=== PATIENT | male | born 1955 | race Caucasian/White ===

== ENCOUNTER 2018-10-24 08:05 | Inpatient (IN) ==
[2018-10-24] MEDS ORDERED: DILAUDID IV ONE ×2 (09:04→10:09)
[2018-10-24] MEDS ORDERED: ZOFRAN IV ONE (09:04)
[2018-10-24] MEDS ORDERED: NS 1,000 ML IV ONE (09:04)
--- NOTE | 2018-10-24 09:07 | PROVIDER DOCUMENTATION ---
HPI-Male Problem - General Chief Complaint: Flank Pain Stated Complaint: CP,LEFT FLANK PAIN Time Seen by Provider: 10/24/18 09:01 Source: patient, old records Allergies/Adverse Reactions: Patient Allergies Allergy/AdvReac Type Severity Reaction Status Date / Time No Known Allergies Allergy Verified 10/24/18 08:49 - History of Present Illness-Male Nature of Presenting Problem: pt w/ hx of stones awakend this a.m. w/ sudden L flank pain, emesis. no fever. no hematuria reported. was well yesterday. PMHx AMI this July, on ASA/Plavix, statins, etc. NKA. Review of Systems - Adult - REVIEW OF SYSTEMS - ADULT Constitutional: reports: no symptoms reported Eyes: reports: no symptoms reported Ears, Nose, Mouth & Throat: reports: no symptoms reported Cardiovascular: reports: no symptoms reported Respiratory: reports: no symptoms reported Gastrointestinal: reports: abdominal pain Genitourinary: reports: see HPI Musculoskeletal: reports: no symptoms reported Integumentary: reports: no symptoms reported Neurological: reports: no symptoms reported Psychiatric: reports: no symptoms reported Endocrine: reports: no symptoms reported Hematologic/Lymphatic: reports: no symptoms reported Allergic/Immunologic: reports: no symptoms reported All Other Systems: Reviewed and Negative Past History - Adult - PAST MEDICAL HISTORY-ADULT Review of Records: reports: Old Records Reviewed Physical Exam-General - PHYSICAL EXAM-ADULT Initial Vital Signs Reviewed: Yes - CONSTITUTIONAL General Appearance: alert, moderate distress - EYES Eyes: PERRL/EOMI. negative: sclera injected, scleral icterus - HEAD, EARS, NOSE, MOUTH & THROAT HENMT: normal ENT inspection - NECK Neck: supple - RESPIRATORY Respiratory: lungs clear - CARDIOVASCULAR Cardiovascular: normal peripheral pulses, regular rate, rhythm - GASTROINTESTINAL (ABDOMEN) Abdominal Exam: non tender, soft - GENITOURINARY Male Genitalia: deferred Rectal Exam: deferred - LYMPHATIC Lymphatic: no adenopathy - MUSCULOSKELETAL Back Exam: normal inspection Extremity: normal gait Peripheral Pulses: radial (R): 2+, radial (L): 2+ - SKIN Integumentary: normal color, normal turgor, warm/dry - NEUROLOGIC 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, grossly normal - PSYCHIATRIC Psych/Mental Status: normal mood/affect, normal thought content Progress - PLAN OF CARE/RESULTS Progress/Plan/Lab Results: Vital Signs - 8 hr 05/16/19 08:06 10/24/18 09:39 10/24/18 10:11 Temperature 97.3 F L Pulse Rate 69 57 L 54 L Respiratory Rate 20 20 21 Blood Pressure 163/87 153/92 137/78 O2 Sat by Pulse Oximetry 99 93 L 87 L Laboratory Results - last 24 hr 10/24/18 10/24/18 10/24/18 08:47 08:47 10:25 WBC 10.91 H RBC 4.47 L Hgb 13.2 L Hct 39.7 L MCV 88.8 MCH 29.5 MCHC 33.2 RDW Std Deviation 12.6 Plt Count 168 MPV 11.1 H Immature Gran % (Auto) 0.2 Neut % (Auto) 85.6 H Lymph % (Auto) 9.2 L [place] % (Auto) 4.5 Eos % (Auto) 0.3 Baso % (Auto) 0.2 Immature Gran # (Auto) 0.02 Neut # (Auto) 9.35 H Lymph # (Auto) 1.00 L [place] # (Auto) 0.49 Eos # (Auto) 0.03 Baso # (Auto) 0.02 Segmented Neutrophils 87 H Lymphocytes 9 L Monocytes 4 Sodium 140 Potassium 3.9 Chloride 105 Carbon Dioxide 24 L Anion Gap 11 BUN 17 Creatinine 1.3 H Estimated GFR/1.73 m2 55 BUN/Creatinine Ratio 13 Glucose 129 H Calculated Osmolality 283 Calcium 8.8 Total Bilirubin 0.44 AST 22 ALT 19 Alkaline Phosphatase 77 Total Protein 7.4 Albumin 4.5 Globulin 2.9 Albumin/Globulin Ratio 1.6 Urine Source CLEAN CATCH Urine Color YELLOW Urine Turbidity CLEAR Urine pH 5.5 Ur Specific [place] 1.019 Urine Protein 30 A Ur Glucose (Stick) NEGATIVE Ur Ketones (Stick) NEGATIVE Urine Blood LARGE A Urine Nitrite NEGATIVE Urine Bilirubin NEGATIVE Urobilinogen Dipstick NORMAL Urine Leukocytes NEGATIVE Urine WBC (Auto) <10 Urine RBC (Auto) TNTC A U Epithel Cells (Auto) <10 Urine Bacteria (Auto) NEGATIVE Orders Category Date Time Status CT RENAL STONE SEARCH [CT] Stat Exams 10/24/18 09:03 Completed CBC WITH DIFF [HEME] Stat Lab 10/24/18 08:47 Completed COMPREHENSIVE METABOLIC PANEL [CHEM] Stat Lab 10/24/18 08:47 Completed URINALYSIS W/POSS RFLX CULT [URINALYSIS] Stat Lab 10/24/18 10:25 Completed 0.9% Sodium Chloride Inj [Ns] 1,000 ml Med 10/24/18 09:04 Discontinued IV 500 mls/hr Hydromorphone [Dilaudid] Med 10/24/18 09:04 Discontinued 1 mg IV NOW ONE Hydromorphone [Dilaudid] Med 10/24/18 10:09 Discontinued 1 mg IV NOW ONE Ondansetron [Zofran] Med 10/24/18 09:04 Discontinued 4 mg IV NOW ONE EKG [EKG] Stat Ther 10/24/18 08:18 Draft Result Diagrams: 10/24/18 08:47 10/24/18 08:47 - REASSESSMENT Reassessment #1 Time Reassessed: 10:30 Status: unchanged (CT confirms prox L ureteral stone (9mm); discussed options w/ pt who prefers admission, has seen Vivi before.) - CONSULTS/PCP/HOSPITALIST Notification #1 *Consult/PCP/Hospitalist*: Warner Consult Disposition: Admit Departure - Departure Date of Disposition Decision: 10/24/18 Time of Disposition Decision: 11:39 DIAGNOSIS: Kidney stone on left side Disposition: ADMITTED INPATIENT 09 Certified Medical Emergency: Emergent Condition: Stable Referrals and Follow-Ups: Maximino Adame MD [Primary Care Provider] - - Critical Care Note This patient required my direct & personal management of CC.: No Attestation - Physician/ PAULIE Attestation The physician spent face to face time with patient:: Yes Advanced Practice Provider documentation review:: Supervising physician onsite and consulted in the evaluation and care of this patient. The physician did have a face to face encounter with the patient.
--- NOTE | 2018-10-24 09:23 | EKG Report ---
Test Performed on : 10/24/2018 08:15:23 AM Test Reason : CHEST DISCOMFORT Blood Pressure : / mmHG Vent. Rate : 061 BPM Atrial Rate : 061 BPM P-R Int : 158 ms QRS Dur : 086 ms QT Int : 418 ms P-R-T Axes : 036 -21 034 degrees QTc Int : 420 ms Normal sinus rhythm. Septal infarct , age undetermined T wave abnormality, consider anterior ischemia Abnormal ECG No previous ECGs available Unconfirmed Result
[2018-10-24 09:35] LABS: ALB/GLOB RATIO 1.6; ALBUMIN 4.5 g/dL (3.5-5.0); CALCIUM 8.8 mg/dL (8.8-10.2); CREATININE 1.3 mg/dL (0.7-1.2); POTASSIUM 3.9 mmol/L (3.5-5.1); TOTAL BILIRUBIN 0.44 mg/dL (0.20-1.00); TOTAL PROTEIN 7.4 g/dL (6.3-8.3)
--- NOTE | 2018-10-24 09:35 | Diag Imaging Result Doc PS360 ---
EXAM: CT RENAL STONE SEARCH HISTORY: sudden L flank pain, hx of stones TECHNIQUE: CT abdomen and pelvis without contrast COMPARISON: None. FINDINGS: The gallbladder has been removed. There is fatty infiltration of the liver. No focal hepatic normality identified on this noncontrasted exam. Normal spleen, pancreas, and adrenal glands. There are multiple nonobstructing right renal stones. No right-sided hydronephrosis. There is a 3 x 4 x 9 mm stone in the upper left ureter with mild hydronephrosis and prominent perinephric inflammation. Tiny nonobstructing left upper pole renal stone. Normal aorta. Normal appendix. No abscess. No bowel obstruction. No ascites. There are several scattered diverticula. The urinary bladder is moderately distended and is normal. Normal prostate. There are fat filled inguinal hernias. Orthopedic replacement of the right hip. Anterior abdominal mesh at the umbilicus. IMPRESSION: 1.Left upper ureteral stone with hydronephrosis and prominent perinephric inflammation 2.There are other nonobstructing renal stones 3.Cholecystectomy 4.Scattered colonic diverticula 5.Fatty infiltration of the liver This exam was performed using automated exposure control, adjustment of mA or kV according to patient size, and/or use of iterative reconstruction technique. Electronically signed by Pablito Quan 10/24/2018 9:32 AM
[2018-10-24 10:16] LABS: BASO# 0.02 X1000 (0.0-0.2); BASO% 0.2 % (0.0-0.8); EOS# 0.03 X1000 (0.0-0.7); EOS% 0.3 % (0.0-10.0); HEMATOCRIT 39.7 % (42.0-52.0); HEMOGLOBIN 13.2 g/dL (14.0-18.0); IMM GRAN# 0.02 X1000 (0.0-0.04); IMM GRAN% 0.2 % (0.0-0.5); LYMPH% 9.2 % (20.5-51.1); MCH 29.5 PG (27-31); MCHC 33.2 g/dL (33-37); MCV 88.8 FL (81-99); MONO# 0.49 X1000 (0.11-0.59); MONO% 4.5 % (1.7-9.3); MPV 11.1 FL (7.4-10.4); NEUT# 9.35 X1000 (1.4-6.5); NEUT% 85.6 % (42.2-75.2); PLT 168 X1000 (130-400); RBC 4.47 XMIL (4.7-6.1); RDW 12.6 % (11.5-14.5); WBC 10.91 X1000 (4.8-10.8)
[2018-10-24 10:50] LABS: URINE SOURCE CLEAN CATCH
[2018-10-24 11:10] LABS: LYMPHS 9 % (21-51); MONO 4 % (1-9); SEGS 87 % (42-75)
[2018-10-24 11:16] LABS: BILIRUBIN URINE NEGATIVE (NEGATIVE); BLOOD URINE LARGE (NEGATIVE); COLOR YELLOW; GLUCOSE URINE NEGATIVE (NEGATIVE); KETONE URINE NEGATIVE (NEGATIVE); LEUKOCYTES URINE NEGATIVE (NEGATIVE); NITRITE URINE NEGATIVE (NEGATIVE); PH URINE 5.5; PROTEIN URINE 30 mg/dL (NEGATIVE); SP GRAVITY URINE 1.019; TURBIDITY URINE CLEAR (CLEAR); UROBILINOGEN URINE NORMAL (NORMAL)
[2018-10-24 11:18] LABS: UR EPITHELIAL CELLS <10 /HPF (<10); URINE BACTERIA NEGATIVE /HPF; URINE RBC TNTC /HPF (<10); URINE WBC <10 /HPF (<10)
--- NOTE | 2018-10-24 11:38 | ED EKG INTERP ---
This chart was entered by Rosa Maria Norman Scribe, acting as scribe for Danilo Cardona MD. EKG Interpretation - EKG Time of EKG reading by physician:: 08:15 EKG Read and Signed by:: Danilo Cardona EKG Interpretation (*Must complete 3 of following elements*): Abnormal Rate: 61 Rhythm: nsr [place]: normal QRS: normal [place] Interval: normal Comments: septal infarct, age undetermined/T wave abnormality Attestation - Physician/ PAULIE Attestation Patient care was provided by Advanced Practice Provider:: No The physician spent face to face time with patient:: Yes Advanced Practice Provider documentation review:: Supervising physician onsite and consulted in the evaluation and care of this patient. The physician did have a face to face encounter with the patient. This chart was documented by the indicated scribe, (Rosa Maria Norman Scribe) and accurately reflects the services I performed and decisions made by me, Danilo Cardona MD, as attested by the provider's signature.
[2018-10-24] MEDS ORDERED: ZOFRAN IV PRN (11:41)
[2018-10-24] MEDS: ROCEPHIN 1 GM in NS 50 ML IV SCH (12:25)
[2018-10-24] MEDS ORDERED: ROCEPHIN 1 GM in NS 50 ML IV ONE (12:49)
[2018-10-24] MEDS: NS 1,000 ML IV SCH ×2 (13:21→23:22)
[2018-10-24] MEDS: DILAUDID IV PRN ×4 (13:38→23:20)
--- NOTE | 2018-10-24 14:40 | HISTORY AND PHYSICAL ---
CHIEF COMPLAINT: Left flank pain and gross hematuria. HISTORY OF PRESENT ILLNESS: This is a 63-year-old gentleman with a prior history of calcium oxalate stones, coronary artery disease status post coronary artery bypass graft and subsequent stents with his last event being an OH in July of 2018. He presents complaining of a sudden onset of left flank pain. He states it felt like somebody was stabbing a knife in his back. In retrospect, he and his state that his urine has been tea to cranberry juice colored intermittently starting 2 to 3 days ago. He does state that he has a history of calcium oxalate stones. Renal CT was performed in the emergency room which revealed multiple bilateral small nonobstructing stones as well as a 3 x 4 x 9 mm proximal left ureter stone with mild hydro with prominent perinephric inflammation. He is afebrile. He is noted to have a white count of 10.9 with urinalysis that reveals large amount of blood with too numerous to count red blood cells. PAST MEDICAL HISTORY: 1. Calcium oxalate stones. 2. Coronary artery disease status post coronary artery bypass graft with subsequent OH and stents the last being in July of 2018. 3. Irritable bowel syndrome. SOCIAL HISTORY: He is . He denies any alcohol, tobacco, or illicit drug use. ALLERGIES: No known drug allergies. HOME MEDICATIONS: A list will be obtained by the nursing staff. Once verified, we will review and restart it as appropriate. REVIEW OF SYSTEMS: Discussed with patient with pertinent positives stated in HPI. He denied any syncope, dizziness, chest pain, palpitations, any shortness of breath, cough, fever, chills, night sweats, any nausea, vomiting, diarrhea, constipation, black or bloody vomitus or stools, any dysuria, frequency, or urgency. PHYSICAL EXAMINATION: GENERAL: This is a 63-year-old gentleman who is sitting up in the bed in no distress. VITAL SIGNS: Blood pressure 153/90 with a heart rate of 57, respirations are 20, temperature is 97.3 degrees oral with O2 saturations ranging 93 to 99%. EYES: Pupils equal, round, and react to light. EOMs are intact. Sclerae anicteric. HEENT: Head is normocephalic, atraumatic. Mucous membranes are moist. NECK: Supple with trachea midline. He has no JVD. CARDIOVASCULAR: Regular rate and rhythm. S1, S2 appreciated. No murmur. He has no lower extremity edema. Calves are nontender bilateral peripheral pulses palpable x4 extremities. PULMONARY: Breath sounds are clear. No increased work of breathing noted. Chest rises and falls symmetric respiration. Chest wall is nontender to palpation. GASTROINTESTINAL: Abdomen is soft, nontender, and nondistended. Bowel sounds in all 4 quadrants. GENITOURINARY: He has left CVAT. NEUROLOGIC: He is alert and oriented x3. SKIN: Warm and dry. LABORATORY: WBC is 10.9 with hemoglobin 13.2, hematocrit 39.7, and platelets of 168,000. Sodium is 140, potassium 3.9, BUN 11, creatinine 1.3 with a glucose of 129. Urinalysis reveals large blood with too numerous to count red blood cells. Renal CT revealed he has got a left 3 x 4 x 9 proximal left ureter stone with mild hydronephrosis and prominent perinephric inflammation with multiple nonobstructing obstructing stones in the right with multiple bilateral nonobstructing renal stones. Status post cholecystectomy. Scattered colonic diverticula, and fatty infiltration of the liver. ASSESSMENT AND PLAN: 1. 3 x 4 x 9 mm proximal left ureter nephrolithiasis with mild hydronephrosis and prominent perinephric inflammation. 2. The patient will remain NPO. Dr. Jacques Trinidad has been consulted. 3. Leukocytosis - Rocephin for antibiotic coverage. 4. CAD with recent OH. The patient is on aspirin and Plavix. 5. Bradycardia. The patient and the state that he has had heart rate in the 50s intermittently over the last few months. He is on metoprolol. Of course, we will hold all of his medications. He will be placed on telemetry. We will monitor his heart rate. We will consult Cardiology. 6. Hypertension. We will monitor vital signs and continue medications as appropriate. 7. For DVT prophylaxis, we will use SCD's and GI prophylaxis of Prilosec. 8. Further treatments pending hospital course. Dictated by GUSTAVO Orozco for Alec Warner MD cc: GUSTAVO Orozco MD I agree with most components of history, physical, assessment and plan. A separate addendum has been dictated. [facility]
[2018-10-24] MEDS ORDERED: PLAVIX PO ONE (14:52)
[2018-10-24] MEDS ORDERED: ASPIRIN PO ONE (15:00)
--- NOTE | 2018-10-24 15:57 | HISTORY AND PHYSICAL ---
ADDENDUM: I agree with most components of history, physical, assessment and plan. In brief, Mr. Cortez is a 63 year old man with history of coronary artery disease and myocardial infarction requiring 3 stents in July of 2018, nephrolithiasis, and cholecystectomy, who comes in with chief complaints of left-sided flank pain with vomiting which started today morning. In the emergency room, he was found to have mild leukocytosis. CAT scan of the abdomen and pelvis showing bilateral nephrolithiasis with left proximal ureteral nephrolithiasis causing obstructing hydronephrosis. He will be admitted for need for urologic intervention, and need for IV antibiotics for suspected acute pyelonephritis as well. SUBJECTIVE: He is feeling the same. He still complains of some soreness on the left side. He has not taken his aspirin or Plavix today. I ordered now dose. We discussed about CAT scan findings, and I answered all of his questions. VITAL SIGNS: Temperature 97.9 degrees, pulse 52, respiratory rate 18, blood pressure 130/72, and saturating 98% on room air. PHYSICAL EXAMINATION: Not in any acute distress. Oral cavity is moist. LUNGS: Air entry bilaterally equal. No wheeze, rhonchi, or crackles. CARDIOVASCULAR: S1, S2 normal. Bradycardic. No murmur, rub, or gallop. ABDOMEN: Soft and nontender except left lower quadrant where there is significant tenderness without guarding or rigidity. He also has left-sided costovertebral angle tenderness. No lower extremity edema. LABORATORY: Labs are suggestive of mild leukocytosis, normal hemoglobin, and platelet count. Kidney dysfunction. Hematuria. However, patient had denied barry hematuria. MICROBIOLOGY: Urine culture is in lab. IMAGING: Renal CT was suggestive of left ureteral stone with hydronephrosis and prominent perinephric information. EKG was suggestive of sinus bradycardia. ASSESSMENT AND PLAN: 1. Left-sided proximal ureteral nephrolithiasis leading to obstructive hydronephrosis, and acute pyelonephritis on the left. 2. History of coronary artery disease status post PCI in July of 2018. 3. Hyperlipidemia and essential hypertension. PLAN: I will continue patient on intravenous hydration. We will start him on intravenous ceftriaxone. We will consult Urology to evaluate for need for urologic intervention to relieve the hydronephrosis. I will resume most of his cardiovascular regimen including aspirin, statin, and Plavix. I will also follow up with urine culture results. Plan of care discussed with the patient, and all of his questions have been answered satisfactorily. cc: Alec Warner MD
[2018-10-24] MEDS: NORCO-10 PO SCH (19:00)
[2018-10-24] MEDS: PATIENT'S OWN MED PO SCH (23:22)
--- NOTE | 2018-10-25 00:24 | CONSULTATION ---
DATE OF CONSULTATION: 10/24/2018 CHIEF COMPLAINT: 1. Left flank pain. 2. Hematuria. 3. Left ureteral stone. HISTORY OF PRESENT ILLNESS: Mr. Cortez is a 63-year-old with history of nephrolithiasis, coronary artery disease status post 3 coronary stents in July 2018, who presents in consultation regarding left flank pain, hematuria, and CT scan evidence of a ureteral stone on the left. The patient had a recent myocardial infarction and had stents placed in July 2018 at [facility]. The patient states he developed excruciating left flank pain this morning and presented to the ED. The patient was having significant pain and discomfort, and a CT scan of the pelvis was performed, which showed bilateral stones with multiple renal stones in the right kidney as well as a left ureteral stone in the proximal ureter with subsequent hydronephrosis and straining. The patient has been noticing slightly reddish urine for several days now and has a long history of calcium oxalate stones as previously treated by Dr. Ibrahim. He has had several stones he passed spontaneously as well as multiple stones that have required surgical intervention; undergone shockwave as well as ureteroscopy for removal. The patient was admitted to the hospitalist for monitoring and consideration for surgical intervention. The patient is on Plavix and aspirin after his recent PCI and stent placement. The patient continues to have pain and has only received IV pain medication, and denies taking any oral pain medication. Denies any fevers or chills at home. Denies any burning, denies any voiding complaints. SURGICAL HISTORY: 1. Coronary artery stents x3 in July 2018. 2. Right kidney stone removal with extracorporeal shock lithotripsy and laser lithotripsy. 3. Spinal fusion. PAST HISTORY MEDICATIONS: 1. Coronary artery disease. 2. Calcium oxalate stones. ALLERGIES: No known drug allergies. MEDICATIONS: 1. Apremilast 30 mg, 1 tablet b.i.d. 2. Aspirin 81 mg p.o. daily. 3. Rocephin 50 mL q.24 hours. 4. Plavix 75 mg p.o. daily. 5. [place] 10, one tablet p.o. q.6 hours. 6. Dilaudid 1 mg q.3 hours. 7. Lisinopril 2.5 mg p.o. daily. 8. Metoprolol 50 mg p.o. daily. 9. Zofran 4 mg IV q.4 hours. 10. Crestor 40 mg p.o. daily. 11. Flomax 0.4 mg daily. FAMILY HISTORY: Patient has a history of his brother having kidney cancer and kidney removed. No evidence of prostate cancer. SOCIAL HISTORY: The patient is . He denies any alcohol, tobacco, or illicit drug use. REVIEW OF SYSTEMS: A 12-point review of systems performed with all pertinent positives and negatives in HPI. PHYSICAL EXAMINATION: Vital Signs: Temperature 97.9 degrees, heart rate 54, blood pressure 110/48, oxygen saturation 96% on room air. General: No acute distress, resting comfortably in bed. Alert and oriented x3. HEENT: Normocephalic, atraumatic. Pupils equal, round, react to light. Mucous membranes moist. Neck: Trachea midline. No obvious masses. Respiratory: Good respiratory effort without audible wheezing or rales. Cardiovascular: S1, S2 heart sounds. No evidence lower extremity edema. Abdomen: Soft, nondistended. Slight tenderness to palpation in the left abdomen that radiates into the left flank. Genitourinary: No suprapubic tenderness. Normal phallus. Normal bilateral testicles without masses. Digital rectal examination: No obvious prostatic enlargement or palpable masses. No palpable rectal masses. Skin: No obvious skin lesions or rashes. Neurologic: Gross motor and sensory intact. Musculoskeletal: No obvious skeletal deformities. LABS: White blood cell count 10.9, hemoglobin 13.2, hematocrit 39.7, platelets 168,000. Sodium 140, potassium 3.9, chloride 105, bicarb 24, BUN 17, creatinine 1.3. Glucose 129. Urinalysis negative for bacteria, large amount of blood, [id number]-count RBCs, and less than [address] of the abdomen and pelvis was reviewed, which showed an approximately 9 mm stone present in the proximal left ureter with associated hydronephrosis and stranding around the kidney itself. Almost appears that patient had some calyceal rupture with some fluid around the left kidney itself. There is multiple nonobstructing stones in the right kidney, mostly in the inner pole and lower pole regions, the largest being approximately 8 mm in length. No obvious ureteral stones in the right. ASSESSMENT AND PLAN: Mr. Cortez is a 63-year-old with history of nephrolithiasis and coronary artery disease, status post coronary stenting in July 2018. The patient currently is on Plavix and aspirin for this, and shows me a card showing tacrolimus eluting stents. He was not told how long he had to be on Plavix, but he thought he had to be on it the rest of his life. Looking at the CT scan, he has an obvious stone in the left ureter itself causing proximal hydronephrosis. Talked at length with he and his today regarding the location of stone and that it is difficult to treat stones in that location while on Plavix. The patient likely cannot come off of Plavix for at least 6 months to a year after placement. Recommended to him to undergo cystoscopy with bilateral retrograde pyelograms and possible left ureteral stent placement to temporize his pain, and then consider treatment of the stone at later date. Optimally, I would like for him to be off his Plavix but I do not think that will be possible. He has had multiple stones passed in the past and has multiple stones in the right kidney as well. The patient may ultimately need ureteroscopy while on the Plavix, but I think with pre-stenting it may make it easier to extract the stone and cause less trauma to the left ureter, and subsequently less bleeding. Discussed with the patient. We will plan to proceed with cystoscopy and left stent placement tomorrow to alleviate his pain. Continue p.o. and IV pain medications as necessary. Continue fluid intake, both IV as well as p.o. We will give him a diet today and make him NPO at midnight. Reviewed with him at length the risks of performing surgery while on Plavix, as well as the risk of anesthesia after a myocardial infarction and increase risk of mortality. He expressed understanding and would like proceed. Plan was discussed at length with the patient and his . I will continue to monitor. Please call with questions or concerns. cc: Fantasma Ritchie MD MTDD
[2018-10-25] MEDS: NORCO-10 PO SCH ×3 (01:13→22:32)
[2018-10-25] MEDS: DILAUDID IV PRN ×5 (03:56→20:49)
[2018-10-25 07:08] LABS: BASO# 0.01 X1000 (0.0-0.2); BASO% 0.1 % (0.0-0.8); EOS# 0.06 X1000 (0.0-0.7); EOS% 0.7 % (0.0-10.0); HEMATOCRIT 36.2 % (42.0-52.0); HEMOGLOBIN 11.6 g/dL (14.0-18.0); LYMPH# 1.16 X1000 (1.2-3.4); LYMPH% 13.6 % (20.5-51.1); MCH 29.3 PG (27-31); MCV 91.4 FL (81-99); MONO# 0.94 X1000 (0.11-0.59); MPV 10.9 FL (7.4-10.4); NEUT# 6.35 X1000 (1.4-6.5); NEUT% 74.6 % (42.2-75.2); PLT 146 X1000 (130-400); RBC 3.96 XMIL (4.7-6.1); RDW 12.8 % (11.5-14.5); WBC 8.52 X1000 (4.8-10.8)
[2018-10-25 07:25] LABS: CALCIUM 8.2 mg/dL (8.8-10.2); CREATININE 1.6 mg/dL (0.7-1.2); POTASSIUM 4.2 mmol/L (3.5-5.1)
--- NOTE | 2018-10-25 08:16 | PROGRESS NOTE ---
DATE: 10/25/2018 SUBJECTIVE: No acute events overnight. Patient remains afebrile with stable vital signs. The patient continues to have some left flank pain. Denies any hematuria or dysuria. The patient states the addition of oral pain medication has helped with his pain. Denies any nausea or vomiting. Tolerated p.o. intake last night. Not much of an appetite last night. OBJECTIVE: Vital signs: Temperature 98.3 degrees, heart rate 65, blood pressure 118/52, and oxygen saturation 92% on room air. General: No acute distress. Resting comfortably in bed. Alert and oriented x3. Respiratory: Good respiratory effort without audible wheezing or rales. Abdomen: Soft, nondistended. Slight tenderness to palpation of the left abdomen into the left flank. No rebound tenderness. : No suprapubic tenderness. LABORATORY: White blood cell count 8.5, hemoglobin 11.6, hematocrit 36.2, and platelets 146,000. Sodium 141, potassium 4.2, chloride 108, bicarb 23, BUN 17, creatinine 1.6, and glucose 104. ASSESSMENT AND PLAN: Mr. Cortez is a 63-year-old with history of coronary artery disease status post coronary artery stenting in July and nephrolithiasis, who presents in consultation regarding obstructing left ureteral stone. I reviewed CT imaging which shows an obstructing stone in the proximal portion of the ureter leading to associated hydronephrosis and stranding around the kidney. Talking with the patient, I recommended consideration for cystoscopy, bilateral retrograde pyelograms, and left ureteral stent placement. The patient was educated on the higher risk of cardiac events and mortality with elective procedures within 6 months of recent myocardial infarction. The patient does have worsening renal function today with persistent pain. I think ultimately he is at a higher risk of having a repeat coronary event if his creatinine continues to worsen, and he is under significant distress of pain. We will plan to place a left stent, and then discuss with him at a future date treatment of the stone. Current stone is in good position for extracorporeal shockwave lithotripsy, but while Plavix this ss not an option, could consider ureteroscopy in the future with or without being on Plavix. He likely needs to be on Plavix for at least 6 to 12 months after his stent placement due to him having a drug-eluting stent. We will continue to monitor. Please call with questions or concerns. cc: Fantasma Ritchie MD MTDD
[2018-10-25] MEDS ORDERED: PRINIVIL PO SCH (09:00)
[2018-10-25] MEDS ORDERED: SODIUM CHLORIDE 0.9% ONE (09:08)
--- NOTE | 2018-10-25 09:51 | PROGRESS NOTE ---
DATE: 10/25/2018 INTERVAL HISTORY: The patient continued to have left lower quadrant pain yesterday evening for which his hydromorphone dose was increased and he was also started on his p.o. pain medications following which his pain was significantly better. I discussed his case with urologist at bedside. Considering patient's recent coronary event, he will need to remain on dual antiplatelet medications. He does have worsening kidney function considering his persistent pain as well. Urology is planning stent placement on his left ureter and in future ureteroscopy. Currently, the patient says he is feeling slightly better than yesterday, however, he still has pain which is well-controlled on the oral medication. We discussed about risks of bleeding and coronary event with recent episode of myocardial infarction, however, considering his significant pain and worsening kidney function, it looks like his obstructive hydronephrosis might need intervention. OBJECTIVE: Vital signs: Currently vitals, temperature 98.3, pulse 65, respiratory rate is 16, blood pressure 120/52, saturating 92% on room air. PHYSICAL EXAMINATION: General: He does not appear in any acute distress. HEENT: Oral cavity is moist. Lungs: Air entry bilaterally equal. No wheezing, rhonchi, or crackles. Heart: S1, S2 normal. No murmur, rub, or gallop. Abdomen: Soft, mild tender in the left lower quadrant and left costovertebral angle tenderness, which is better than yesterday. He does not have any guarding or rigidity. Extremities: He does not have any lower extremity edema. LABORATORY: Labs suggestive of no leukocytosis, normocytic anemia, normal platelet count. He does have hyperchloremia, a low bicarbonate, elevated creatinine to 1.6, and calcium of 8.2. Urine culture is pending. IMAGING: Not any further imaging. ASSESSMENT AND PLAN: 1. Left-sided proximal ureteral nephrolithiasis leading to obstructive hydronephrosis and acute pyelonephritis with acute kidney injury. Continue intravenous fluid and change it to lactated Ringer's considering hyperchloremia. Continue intravenous ceftriaxone and follow up with final urine culture results. Urology on board and is considering left ureteric stent placement. Considering the patient's recent coronary artery disease and myocardial infarction about 3 months ago, he is at [id number] risk of perioperative cardiovascular events. 2. History of coronary artery disease status post percutaneous coronary intervention in July 2018. Telemetry strips has sinus bradycardia. Electrocardiogram has just suggested normal sinus rhythm. He is not complaining of any chest pain. I will continue his home aspirin, clopidogrel, metoprolol, and atorvastatin. I am holding his lisinopril and spironolactone considering his acute kidney injury. I will continue to monitor the patient. DISPOSITION: The patient remains inside the hospital for urologic intervention. Plan of care discussed with him. I allowed him to ask any questions and answered all of his questions satisfactorily. cc: Alec Warner MD
[2018-10-25] MEDS: PATIENT'S OWN MED PO SCH ×2 (09:54→20:51)
[2018-10-25] MEDS: PLAVIX PO SCH (09:55)
[2018-10-25] MEDS: ASPIRIN PO SCH (09:55)
[2018-10-25] MEDS: LOPRESSOR PO SCH (09:56)
[2018-10-25] MEDS: LR 1,000 ML IV SCH ×2 (09:56→22:32)
[2018-10-25] MEDS: FLOMAX PO SCH (09:56)
[2018-10-25] MEDS: CRESTOR PO SCH ×2 (09:56→10:01)
[2018-10-25] MEDS ORDERED: DIPRIVAN 1% ONE ×2 (12:36→16:28)
[2018-10-25] MEDS ORDERED: XYLOCAINE-MPF 2% ONE ×2 (12:37→16:27)
[2018-10-25] MEDS: ROCEPHIN 1 GM in NS 50 ML IV SCH (14:53)
[2018-10-25] MEDS ORDERED: ROBINUL ONE (16:27)
[2018-10-25] MEDS ORDERED: DECADRON ONE (16:27)
[2018-10-25] MEDS ORDERED: ZOFRAN ONE (16:27)
[2018-10-25] MEDS ORDERED: FENTANYL ONE (16:28)
[2018-10-25] MEDS ORDERED: EPHEDRINE ONE (18:23)
[2018-10-26] MEDS ORDERED: LEVSIN PO PRN (00:07)
[2018-10-26] MEDS ORDERED: PYRIDIUM PO PRN (00:09)
[2018-10-26 06:57] LABS: HEMATOCRIT 35.3 % (42.0-52.0); HEMOGLOBIN 11.7 g/dL (14.0-18.0); WBC 6.67 X1000 (4.8-10.8)
[2018-10-26 06:58] LABS: LYMPH# 0.63 X1000 (1.2-3.4); LYMPH% 9.4 % (20.5-51.1); MCHC 33.1 g/dL (33-37); MCV 90.5 FL (81-99); MONO# 0.24 X1000 (0.11-0.59); MONO% 3.6 % (1.7-9.3); MPV 10.8 FL (7.4-10.4); PLT 149 X1000 (130-400); RDW 12.4 % (11.5-14.5)
[2018-10-26 07:08] LABS: CALCIUM 8.9 mg/dL (8.8-10.2); CREATININE 1.3 mg/dL (0.7-1.2); POTASSIUM 4.6 mmol/L (3.5-5.1)
[2018-10-26 07:44] VITALS: BP 129/70
[2018-10-26] MEDS: PLAVIX PO SCH (09:39)
[2018-10-26] MEDS: CRESTOR PO SCH (09:39)
[2018-10-26] MEDS: LOPRESSOR PO SCH (09:40)
[2018-10-26] MEDS: ASPIRIN PO SCH (09:40)
[2018-10-26] MEDS: FLOMAX PO SCH (09:40)
--- NOTE | 2018-10-26 19:59 | PROGRESS NOTE ---
DATE: 10/26/2018 SUBJECTIVE: Postop day 1 from cystoscopy, bilateral retrograde pyelograms and left ureteral stent placement. The patient states he feels well and has had significant improvement in his pain. He states he is not taking any pain medication. He denies any bladder spasms or discomfort. He remains afebrile with good urinary output. He denies any blood in his urine. The patient has peed multiple times since his procedure, and states his stream is not limited. OBJECTIVE: Vital signs: Temperature 98.1 degrees, heart rate 63, blood pressure 129/70, oxygen saturation is 94% on room air. General: No acute distress, up beside his bed, brushing his teeth and packing his bag. Respiratory: Good respiratory effort without audible wheezing or rales. Abdomen is soft, nontender, nondistended. : No suprapubic tenderness. No CVA tenderness. Urinal at side of the bed with slightly orange urine that appears to be related to Pyridium intake. LABORATORY DATA: White blood count 6.7, hemoglobin 11.7, hematocrit 35.3, platelets 149,000. Sodium 142, potassium 4.6, chloride 108, bicarbonate 23, BUN 17, creatinine 1.3, glucose 143. ASSESSMENT AND PLAN: Mr. Cortez is a 63-year-old with history of coronary artery disease, status post coronary artery stenting in 07/2018 and nephrolithiasis, who presented in consultation regarding obstructive left renal stone. The patient was taken to the operating room yesterday and underwent cystoscopy, bilateral retrograde pyelograms and left ureteral stent placement. The patient had a large amount of stagnant urine coming from his collecting system after stent placement. The patient has had significant improvement in his pain. He denies any pain this morning. The patient is out of bed and states he is ready to go home. We will plan to discharge later today with p.o. antibiotics, pain medication and Flomax. We will plan to see him back in the office in approximately 2 weeks and see how he is doing. If the patient does well, would consider leaving the stent in for the next several months until he could potentially come off his Plavix. If the patient develops worsening hematuria or significant flank discomfort from the stent, would consider earlier intervention while on the Plavix. I think pre-stenting would allow for easier passage of the ureteroscope up to the site of the stone and hopefully break the stone up easily, and then retrieve it with minimal bleeding. This was relayed to the patient and his . We will plan for him to follow up in approximately 2 weeks in the office. cc: Fantasma Ritchie MD MTDD
--- NOTE | 2018-10-27 04:14 | OPERATIVE NOTE ---
PROCEDURE DATE: 10/25/2018 PREOPERATIVE DIAGNOSES: 1. Left flank pain. 2. Left hydronephrosis. 3. Left obstructing ureteral stone. POSTOPERATIVE DIAGNOSES: 1. Left flank pain. 2. Left hydronephrosis. 3. Left obstructing ureteral stone. PROCEDURE PERFORMED: 1. Cystoscopy. 2. Bilateral retrograde pyelograms. 3. Left ureteral stent placement. SURGEON: Fantasma Ritchie MD. [employer]: None. COMPLICATIONS: None. SPECIMENS REMOVED: Urine for culture. DRAINS: A 6 x 26 cm stent on the left. OPERATIVE FINDINGS: The patient had a normal urethra. No evidence of any strictures or papillary lesions. On entering into the posterior urethra, prostate was relatively small with no obvious obstruction. Both ureteral orifices visualized with efflux of urine. Minimal peristalsis was seen on the left side. The entirety of the bladder was inspected with a 70- degree and 30-degree lens, with no evidence of any mucosal abnormalities, diverticulum, cellules, or trabeculations. Following this, bilateral retrograde pyelograms performed. The right retrograde pyelogram was normal, no obvious obstruction. Delicate collecting system and no obvious filling defects. Good drainage was seen on postdrainage film. Left-sided retrograde showed evidence of obstruction with inability to get contrast past the stone. I was able to advance a wire past the stone and placed a 6 x 26 cm stent on the left with a large amount of sedimentary urine that returned. INDICATIONS FOR PROCEDURE: Mr. Cortez is a 63-year-old with a history of nephrolithiasis and recent myocardial infarction, who developed excruciating left flank pain on 10/24/2018. Presented to emergency room, where a CT scan was performed which showed an obstructing stone in the left proximal ureter causing associated stranding and hydronephrosis. The patient was admitted for pain control and had significant discomfort. The patient was seen in consult and recommended to proceed with cystoscopy, bilateral retrograde pyelograms, and consideration for left ureteral stent placement. Risks, benefits, and alternatives of surgical procedure discussed with the patient, including increased risk of cardiac events due to his recent myocardial infarction in July. All this was discussed with the patient and the patient elected to proceed. DESCRIPTION OF PROCEDURE: After informed consent was obtained, the patient brought to the operating room and placed on the operating table in supine position. Received preoperative antibiotics and underwent LMA placement. The patient was then placed into a dorsal lithotomy position, was prepped and draped in usual sterile fashion. A preoperative time- out was performed, all parties were in agreement, including anesthesia, surgical, nursing staff. At which point, I inserted a 21-Yi cystourethroscope into the urethra, showing normal caliber urethra, no evidence stricture disease, or papillary lesions. Once inside the posterior urethra, prostate was encountered which showed no evidence of hypertrophy or obstruction. The prostate was quite small. Once inside the bladder, the entirety of the bladder was inspected with the 30 and 70 degree lens, with no evidence of any papillary lesions, diverticulum, cellules, or bladder stones. Both ureteral orifices were visualized, efflux of urine. However, there was minimal peristalsis present from the left ureteral orifice. Once the entirety of the bladder was inspected, an open- ended catheter was then passed through the scope, flushed of all bubbles, and the right ureteral orifice was then cannulized and injected with Omnipaque, which outlined a narrow ureter all the way up into the collecting system with no evidence of any obstruction or filling defects. After removal of the catheter, good drainage was seen through the ureteral orifice, and on postdrainage film, good drainage was seen from the collecting system with no retained contrast. The patient was placed to the left side. Location Man fluoroscopy showed no evidence of any stone within the ureter itself. I injected Omnipaque into the left ureteral orifice, which went up to an area that led to obstruction. I then attempted to advance the wire, which was able to be passed all the way up into the kidney itself. However, when I passed the open-ended up to this location, was not able to transverse any farther. Reinserted the wire, which coiled within the collecting system itself, and then removed the open-ended catheter and placed a 6 x 26 cm stent, which was fluoroscopically visualized in the kidney, endoscopically visualized in the bladder. Once this was placed, a significant amount of stagnant urine returned. Multiple irrigations of the bladder were undertaken and a small amount was sent for urine culture. This did not appear to be active infection, but likely related to high-grade obstruction. We will monitor overnight and as long as he remains afebrile, likely will be able to discharge home tomorrow. cc: Fantasma Ritchie MD [facility] HOSPITALBriseyda
--- NOTE | 2018-10-27 09:45 | DISCHARGE SUMMARY ---
ADMISSION DATE: 10/24/2018 DISCHARGE DATE: 10/26/2018 DISCHARGE DISPOSITION: Home without any other discharge needs. DISCHARGE CONDITION: The patient is hemodynamically stable, alert, oriented x3. Denies any abdominal pain or burning micturition. DISCHARGE DIAGNOSES: 1. Left-sided proximal ureteral nephrolithiasis. 2. Obstructive hydronephrosis on the left. 3. Acute left pyelonephritis. 4. Acute kidney injury. 5. History of recent coronary artery disease requiring percutaneous intervention in July 2018. OTHER DIAGNOSES: 1. Past history of multiple calcium oxalate stones. 2. Past history of irritable bowel syndrome. DISCHARGE MEDICATIONS: Aspirin 81 mg daily, clopidogrel 75 mg daily, hydrocodone/acetaminophen 1 tablet every 6 hours as needed for pain. Metoprolol 50 mg daily, Otezla 30 mg b.i.d., rosuvastatin 40 mg daily, spironolactone 12.5 mg daily, lisinopril 2.5 mg daily, cefuroxime 50 mg every 12 hours 10 tablets have been prescribed by urologist. Tamsulosin 0.4 mg daily, 14 capsules have been prescribed by urologist. CONSULTATIONS: During hospitalization, urologist, Fantasma Ritchie MD. PERTINENT PROCEDURE: During hospitalization the patient underwent cystoscopy, bilateral retrograde pyelogram and left-sided ureteral stent placement. The official operative note is pending. PHYSICAL EXAMINATION: Vitals: At the time of discharge, temperature 98.1, pulse 63, respiratory rate 20, blood pressure 129/70, saturating 94% on room air. General: The patient does not appear in any acute distress. ENT: Oral cavity is moist. Lungs: Air entry bilaterally equal. No wheeze, rhonchi, crackles. Cardiovascular: S1, S2 normal. No murmur, rub, or gallop. Abdomen: Soft, nontender. No guarding or rigidity on abdominal examination. Extremities: No lower extremity edema. LABS: Suggestive of WBC of 6000 which improved from 11,000 on admission, hemoglobin of 11.7, platelet of 149. Normal electrolytes. Chloride of 108, bicarbonate 23, creatinine of 1.3, GFR of 55. Significant microbiology during hospital admission, a urine culture which was collected on October 25 was pending. However, the initial urine culture on October 24 did not have any growth to date. Significant imaging during hospital admission, renal CT on admission had a left upper ureteral stone with hydronephrosis and prominent fatty perinephric inflammation. There were other nonobstructive renal stones bilaterally. Cholecystectomy. Scattered colonic diverticula and fatty infiltration of the liver. HOSPITAL COURSE SUMMARY: Mr. Cortez is a 63-year-old, man with recent history of coronary artery disease and PCI in July 2018 on dual anti-platelet medication, came in on 10/24/2018 with chief complaints of flank pain, vomiting, left-sided lower abdominal pain since morning on the day of presentation. In the emergency room, he was hemodynamically stable. However, he did have leukocytosis of 11,000. CT scan of abdomen and pelvis was performed which had detected left-sided proximal ureteric stone leading to obstructive left-sided hydronephrosis. There were also multiple scattered nephrolithiasis and so hospitalist team was consulted for further management. Next, he was started on intravenous fluids and intravenous antibiotics and urology was consulted. Considering he was on dual anti-platelet medications, too many aggressive interventions were not planned. He, however, underwent cystoscopy, retrograde pyelogram, and left- sided ureteral stent placement and that had relieved his obstruction. Following the procedure, he had started feeling better and the next day after the procedure he did not have any abdominal pain. The patient was hemodynamically stable. At the time of discharge, the patient was provided antibiotic prescription by a urologist. He was advised to follow up with urologist as an outpatient. The eventual plan was stone extraction in future. Once his infection was treated as well as his dual anti-platelet therapy could be interrupted for the procedure and a ureteroscopy would be scheduled accordingly. TIME SPENT: More than 30 minutes were spent in discharging the patient. Discharge instructions were provided to patient and his at bedside. All of their questions have been answered. cc: Alec Warner MD
--- NOTE | 2018-10-28 08:44 | Diag Imaging Result Doc PS360 ---
EXAM: RETROGRADES 2 OR 3 FILMS HISTORY: BILATERAL RETROGRADES, LEFT STENT PLACEMENT TECHNIQUE: 26 films submitted COMPARISON: None. FINDINGS: Early films have retrograde filling of the right ureter. No obstruction to retrograde flow. Normal filling of the renal pelvis and calyces. Later films have retrograde filling of the left ureter. The upper ureter does not fill with contrast and there is no emptying into the renal pelvis. A wire was placed within the ureter. A ureteral stent was placed over the wire and the wire was removed. IMPRESSION: Bilateral retrogrades with a left ureteral stent placed Electronically signed by Pablito Quan 10/28/2018 8:41 AM
== END 2018-10-26 12:11 | disposition home or self-care (01) | DRG 661 ==
LOC: ED 08:05 → 4N 08:05 → OBSVTOIN 08:06
PROVIDERS: ATTEND Internal Medicine
CPT/HCPCS: 74176; 74420; 80048; 80053; 81001; 85025; 87088; 93005; 96365; 96375; 96376; 99285; A9270; J0696; J1100; J1170; J2405; J3010; J7030; J7120; Q9966; Q9967